=== PATIENT | female | born 1975 | race Caucasian/White ===

== ENCOUNTER → 2016-12-18 | Outpatient (CLI) | payer BC ==
[~2016-12-18] MED LIST: ALORA; EXCEDRIN TENSIO1 CAP; LEVOXYL0.025 MG; LOMOTIL 0.025 M1 TAB; LORTAB 5/500 501 TAB PO; MOTRIN 600600 MG/TAB PO; NO HOME MEDICATIONS; PERCOCET 325 MG1 TA2 PO; PREVACID 15MG15 M1 PO; PROTONIX 40MG T40 MG PO; PROTONIX20 MG; RANITIDINE150 MG PO; REGLAN 10MG10 MG/TAB PO; SANDOSTATIN LAR10 MG; SUTENT25 MG; ZANTAC 150MG T150 MG PO; ZOLOFT
== END ==
LOC: COL.VAS 07:52
DX: I26.99 Other pulmonary embolism without acute cor pulmonale (principal)

== ENCOUNTER → 2017-01-18 | Outpatient (CLI) | payer BC | LOC: MC.RAD 13:00 | DX: Z12.31 Encounter for screening mammogram for malignant neoplasm of breast (principal) ==

== ENCOUNTER 2017-06-14 02:25 | Emergency (ER) | payer BC ==
[~2017-06-14] VITALS: Ht 162.6 cm; Wt 120.5 kg
[~2017-06-14 02:25] MED LIST changes: -LEVOXYL0.025 MG; +LEVOXYL0.088 MG PO
[2017-06-14 02:32] VITALS: TEMP 98.4
[2017-06-14 03:18] LABS: BASO % 0.5 % (0.0-2.0); EOS % 0.3 % (0-4.0); GRAN # 4.8 (1.4-6.5); GRAN % 77.8 % (42.2-75.2); HEMATOCRIT 42.5 % (37.0-47.0); HEMOGLOBIN 13.9 g/dl (12.5-16.0); LYMPH # 1.1 (1.2-3.4); LYMPH % 17.5 % (20.0-51.0); MEAN CELL VOLUME 88 fl (80.0-100.0); MEAN CORPUSCULAR HEMOGLOBIN 29 pg (27.0-31.0); MEAN CORPUSCULAR HGB CONC 33 g/dl (33.0-37.0); MEAN PLATELET VOLUME 10.7 fl (7.4-10.4); MONO # 0.2 (0.1-0.6); MONO % 3.4 % (1.7-9.3); PLATELET COUNT 93 K/mm3 (130-400); RED BLOOD COUNT 4.85 M/mm3 (4.10-5.30); REDCELL DISTRIBUTION WIDTH-CV 14.6 % (11.5-14.5); WHITE BLOOD COUNT 6.2 K/mm3 (4.8-10.8)
[2017-06-14 03:23] LABS: INR 1.4 (0.8-3.0); PROTHROMBIN TIME 15.3 SECONDS (9.7-12.8)
[2017-06-14 03:30] LABS: ADJUSTED CALCIUM 8.9 mg/dL (8.4-10.2); ALANINE AMINOTRANSFERASE 29 U/L (9-52); ALBUMIN 4.2 gm/dL (3.5-5.0); ALKALINE PHOSPHATASE 82 U/L (50-136); ANION GAP 12 mmol/L (7-16); BILIRUBIN,TOTAL 0.7 mg/dL (0.0-1.0); BLOOD UREA NITROGEN 21 mg/dL (7-17); C-REACTIVE PROTEIN 1.3 mg/dL (0.0-0.9); CALCIUM 9.1 mg/dL (8.4-10.2); CARBON DIOXIDE 26 mmol/L (22-30); CHLORIDE 102 mmol/L (98-107); CREATININE, serum 0.85 mg/dL (0.52-1.25); GLUCOSE 112 mg/dL (74-106); POTASSIUM 3.6 mmol/L (3.4-5.0); SODIUM 140 mmol/L (137-145); TOTAL PROTEIN 6.8 gm/dL (6.4-8.2)
[2017-06-14 03:39] LABS: B-TYPE NATRIURETIC PEPTIDE 102 pg/mL (0-125)
[2017-06-14 03:40] LABS: TROPONIN-I < 0.012 ng/mL (0.000-0.034)
[2017-06-14] MEDS ORDERED: MORPHINE 1515 MG/TAB PO (05:52)
[2017-06-14] MEDS ORDERED: CELEXA 20MG20 MG/TAB PO (05:54)
[2017-06-14] MEDS ORDERED: ZOFRAN ODT8 MG PO (05:55)
[2017-06-14] MEDS ORDERED: NEURONTIN300 MG/CAP PO (05:55)
[2017-06-14] MEDS ORDERED: ELIQUIS 5MG PO (05:56)
[2017-06-14] MEDS ORDERED: FLOMAX 0.40.4 MG/CAP PO (05:56)
[2017-06-14] MEDS ORDERED: CARAFATE 1GM1 G PO (05:57)
[2017-06-14] MEDS ORDERED: COMPAZINE 110 MG/TAB PO (05:57)
[2017-06-14 06:14] LABS: LIPASE 31 U/L (23-300)
[2017-06-14 07:13] VITALS: BP 137/72; PULSE 90
== END 2017-06-14 07:15 | disposition home or self-care (01) ==
LOC: COL.ER 02:25 → CANBEDREQ 03:35 → COL.ER 07:15
PROVIDERS: Emergency Medicine
DX: G89.3 Neoplasm related pain (acute) (chronic) (principal); R07.89 Other chest pain; C7A.8 Other malignant neuroendocrine tumors; Z86.711 Personal history of pulmonary embolism; Z79.01 Long term (current) use of anticoagulants; Z90.49 Acquired absence of other specified parts of digestive tract; Z98.890 Other specified postprocedural states
CPT/HCPCS: J1170; J2405; J3010; J7030; Q9967

== ENCOUNTER 2018-02-01 22:02 | Emergency (ER) | payer MEDICARE, BC ==
[~2018-02-01] VITALS: Ht 162.6 cm; Wt 129.5 kg
[~2018-02-01 22:02] MED LIST changes: +CARAFATE 1GM1 G PO; +CELEXA 20MG20 MG/TAB PO; +COMPAZINE 110 MG/TAB PO; +ELIQUIS 5MG PO; +FLOMAX 0.40.4 MG/CAP PO; +MORPHINE 1515 MG/TAB PO; +NEURONTIN300 MG/CAP PO; +ZOFRAN ODT8 MG PO
[2018-02-01 23:03] LABS: BASO % 0.5 % (0.0-2.0); EOS # 0.1 (0.0-0.7); EOS % 0.9 % (0-4.0); GRAN # 6.2 (1.4-6.5); GRAN % 82.7 % (42.2-75.2); HEMATOCRIT 37.5 % (37.0-47.0); HEMOGLOBIN 11.7 g/dl (12.5-16.0); LYMPH # 0.8 (1.2-3.4); LYMPH % 10.3 % (20.0-51.0); MEAN CELL VOLUME 85 fl (80.0-100.0); MEAN CORPUSCULAR HEMOGLOBIN 27 pg (27.0-31.0); MEAN CORPUSCULAR HGB CONC 31 g/dl (33.0-37.0); MEAN PLATELET VOLUME 10.7 fl (7.4-10.4); MONO # 0.4 (0.1-0.6); MONO % 5.2 % (1.7-9.3); PLATELET COUNT 126 K/mm3 (130-400); REDCELL DISTRIBUTION WIDTH-CV 16.8 % (11.5-14.5)
[2018-02-01 23:10] LABS: INR 1.1 (0.8-3.0); PROTHROMBIN TIME 12.2 SECONDS (9.7-12.8)
[2018-02-01 23:13] LABS: PARTIAL THROMBOPLASTIN TIME 38.2 SECONDS (26.0-37.0)
[2018-02-01 23:16] LABS: ALANINE AMINOTRANSFERASE 30 U/L (9-52); ALBUMIN 3.7 gm/dL (3.5-5.0); ALKALINE PHOSPHATASE 110 U/L (50-136); ANION GAP 12 mmol/L (7-16); AST,SGOT 35 U/L (15-37); BILIRUBIN,TOTAL 0.7 mg/dL (0.0-1.0); BLOOD UREA NITROGEN 9 mg/dL (7-17); C-REACTIVE PROTEIN 4.3 mg/dL (0.0-0.9); CALCIUM 9.2 mg/dL (8.4-10.2); CARBON DIOXIDE 29 mmol/L (22-30); CHLORIDE 99 mmol/L (98-107); GLUCOSE 150 mg/dL (74-106); LIPASE 20 U/L (23-300); POTASSIUM 3.8 mmol/L (3.4-5.0); SODIUM 140 mmol/L (137-145); TOTAL PROTEIN 6.8 gm/dL (6.4-8.2)
[2018-02-01 23:24] LABS: TROPONIN-I < 0.012 ng/mL (0.000-0.034)
[2018-02-02 00:23] LABS: COLLECTION METHOD CLEAN CATCH
[2018-02-02 00:30] LABS: PH 5 (5-8); SQUAMOUS EPITHELIAL 0-2 /hpf; URINE APPEARANCE Hazy; URINE BACTERIA Rare /hpf; URINE BILIRUBIN Negative (NEGATIVE); URINE BLOOD Negative (NEGATIVE); URINE COLOR Yellow; URINE GLUCOSE Negative (NEGATIVE); URINE KETONE Negative (NEGATIVE); URINE LEUKOCYTE ESTERASE Negative (NEGATIVE); URINE NITRATE Negative (NEGATIVE); URINE PROTEIN(semi-quant) Negative (NEGATIVE); URINE RBC 0-2 /hpf; URINE UROBILINOGEN Negative (NEGATIVE)
[2018-02-02] MEDS ORDERED: LIDODERM 5% PATC1 EA TP (00:53)
[2018-02-02 02:04] VITALS: BP 130/69; PULSE 118; TEMP 98.8
== END 2018-02-02 02:07 | disposition home or self-care (01) ==
LOC: COL.ER 22:02
PROVIDERS: Emergency Medicine
DX: C7A.8 Other malignant neuroendocrine tumors (principal); R07.89 Other chest pain; Z90.49 Acquired absence of other specified parts of digestive tract; Z79.01 Long term (current) use of anticoagulants
CPT/HCPCS: J1170; J1885; J2405; J7030; Q9967

== ENCOUNTER → 2018-02-19 | Outpatient (CLI) | payer MEDICARE, BC ==
[2018-02-19] VITALS (15 sets, daily range): BP systolic 119–170; BP diastolic 60–92; PULSE 90–108
[~2018-02-19] VITALS: Ht 162.6 cm; Wt 160.0 kg
[~2018-02-19] MED LIST changes: +ASPIRIN 81M81 MG/TA2 PO; +ATIVAN 1MG T1 MG/TAB PO; +LIDODERM 5% PATC1 EA TP
[2018-02-19 12:16] LABS: INR 1.1 (0.8-3.0)
[2018-02-19 12:35] LABS: PROTHROMBIN TIME 12.9 SECONDS (9.7-12.8)
== END ==
LOC: COL.RAD 11:37
PROVIDERS: Internal Medicine
DX: C7A.098 Malignant carcinoid tumors of other sites (principal); K76.89 Other specified diseases of liver; Z79.01 Long term (current) use of anticoagulants
CPT/HCPCS: J2250; J3010

== ENCOUNTER 2018-03-12 08:51 | Inpatient (IN) | payer MEDICARE, BC ==
[2018-03-12] VITALS (9 sets, daily range): BP systolic 130–144; BP diastolic 45–89; PULSE 96–123; TEMP 97.7–99.2
[~2018-03-12] VITALS: Ht 162.6 cm; Wt 152.3 kg
[2018-03-12 09:36] LABS: BASO # 0.1 (0.0-0.2); BASO % 0.8 % (0.0-2.0); EOS # 0.5 (0.0-0.7); EOS % 5.7 % (0-4.0); GRAN # 6.5 (1.4-6.5); GRAN % 74.2 % (42.2-75.2); HEMOGLOBIN 12.3 g/dl (12.5-16.0); LYMPH # 1.1 (1.2-3.4); LYMPH % 12.3 % (20.0-51.0); MEAN CELL VOLUME 80 fl (80.0-100.0); MEAN CORPUSCULAR HEMOGLOBIN 25 pg (27.0-31.0); MEAN CORPUSCULAR HGB CONC 31 g/dl (33.0-37.0); MEAN PLATELET VOLUME 9.9 fl (7.4-10.4); MONO # 0.5 (0.1-0.6); MONO % 6.1 % (1.7-9.3); PLATELET COUNT 190 K/mm3 (130-400); RED BLOOD COUNT 5.02 M/mm3 (4.10-5.30); REDCELL DISTRIBUTION WIDTH-CV 16.4 % (11.5-14.5)
[2018-03-12 09:46] LABS: ALANINE AMINOTRANSFERASE 28 U/L (9-52); ALBUMIN 3.9 gm/dL (3.5-5.0); ALKALINE PHOSPHATASE 169 U/L (50-136); ANION GAP 12 mmol/L (7-16); AST,SGOT 38 U/L (15-37); BILIRUBIN,TOTAL 1.5 mg/dL (0.0-1.0); BLOOD UREA NITROGEN 7 mg/dL (7-17); CALCIUM 9.4 mg/dL (8.4-10.2); CARBON DIOXIDE 28 mmol/L (22-30); CHLORIDE 98 mmol/L (98-107); CREATININE, serum 0.79 mg/dL (0.52-1.25); GLUCOSE 145 mg/dL (74-106); LIPASE 22 U/L (23-300); POTASSIUM 3.6 mmol/L (3.4-5.0); SODIUM 138 mmol/L (137-145); TOTAL PROTEIN 7.6 gm/dL (6.4-8.2)
[2018-03-12 09:58] LABS: TROPONIN-I < 0.012 ng/mL (0.000-0.034)
[2018-03-12] MEDS ORDERED: XANAX 1MG1 MG PO (09:58)
[2018-03-12] MEDS ORDERED: LOMOTIL 0.025 M1 TAB PO (09:59)
[2018-03-12] MEDS ORDERED: FLEXERIL5 MG PO (10:00)
[2018-03-12] MEDS ORDERED: FLEXERIL 1010 MG/TAB PO (10:00)
[2018-03-12 13:09] LABS: COLLECTION METHOD CLEAN CATCH
[2018-03-12 13:15] LABS: PH 5 (5-8); SQUAMOUS EPITHELIAL 0-2 /hpf; URINE APPEARANCE Clear; URINE BACTERIA Rare /hpf; URINE BILIRUBIN Negative (NEGATIVE); URINE BLOOD Negative (NEGATIVE); URINE COLOR Yellow; URINE GLUCOSE Negative (NEGATIVE); URINE KETONE Negative (NEGATIVE); URINE LEUKOCYTE ESTERASE Negative (NEGATIVE); URINE NITRATE Negative (NEGATIVE); URINE PROTEIN(semi-quant) Negative (NEGATIVE); URINE RBC 0-2 /hpf; URINE UROBILINOGEN >=4.0 mg/dL (NEGATIVE)
[2018-03-13 03:15] VITALS: BP 135/72; PULSE 89; TEMP 98.6
[2018-03-13 06:54] LABS: CALCIUM 8.7 mg/dL (8.4-10.2); CREATININE, serum 0.74 mg/dL (0.52-1.25); POTASSIUM 3.4 mmol/L (3.4-5.0)
[2018-03-13 07:00] LABS: INR 2.3 (0.8-3.0); PROTHROMBIN TIME 25.8 SECONDS (9.7-12.8)
[2018-03-13 07:30] VITALS: BP 107/50; PULSE 85; TEMP 97.9
[2018-03-13 08:18] LABS: BASO % 0.7 % (0.0-2.0); EOS # 0.3 (0.0-0.7); EOS % 5.7 % (0-4.0); GRAN # 3.1 (1.4-6.5); GRAN % 71.3 % (42.2-75.2); LYMPH # 0.7 (1.2-3.4); LYMPH % 14.9 % (20.0-51.0); MEAN CELL VOLUME 81 fl (80.0-100.0); MEAN CORPUSCULAR HGB CONC 30 g/dl (33.0-37.0); MEAN PLATELET VOLUME 10.2 fl (7.4-10.4); MONO # 0.3 (0.1-0.6); MONO % 6.9 % (1.7-9.3); PLATELET COUNT 116 K/mm3 (130-400); RED BLOOD COUNT 3.96 M/mm3 (4.10-5.30); REDCELL DISTRIBUTION WIDTH-CV 16.4 % (11.5-14.5)
[2018-03-13 08:27] LABS: HEMOGLOBIN 9.6 g/dl (12.5-16.0); MEAN CORPUSCULAR HEMOGLOBIN 24 pg (27.0-31.0)
[2018-03-13 11:32] VITALS: BP 127/59; PULSE 102; TEMP 97.9
[2018-03-13 16:56] VITALS: BP 129/49; PULSE 91; TEMP 98.5
[2018-03-13 19:07] VITALS: BP 132/49; PULSE 94; TEMP 98.5
[2018-03-14] VITALS (7 sets, daily range): BP systolic 103–122; BP diastolic 37–57; PULSE 84–97; TEMP 97.9–99.1
[2018-03-14 06:46] LABS: BASO % 0.7 % (0.0-2.0); EOS # 0.2 (0.0-0.7); EOS % 4.9 % (0-4.0); GRAN # 3.1 (1.4-6.5); GRAN % 71.9 % (42.2-75.2); LYMPH # 0.7 (1.2-3.4); LYMPH % 15.9 % (20.0-51.0); MEAN CELL VOLUME 81 fl (80.0-100.0); MEAN CORPUSCULAR HGB CONC 30 g/dl (33.0-37.0); MONO # 0.3 (0.1-0.6); MONO % 6.1 % (1.7-9.3); PLATELET COUNT 123 K/mm3 (130-400); RED BLOOD COUNT 3.96 M/mm3 (4.10-5.30); REDCELL DISTRIBUTION WIDTH-CV 16.2 % (11.5-14.5)
[2018-03-14 06:50] LABS: CALCIUM 8.6 mg/dL (8.4-10.2); CREATININE, serum 0.72 mg/dL (0.52-1.25); HEMATOCRIT 31.9 % (37.0-47.0); HEMOGLOBIN 9.6 g/dl (12.5-16.0); MEAN CORPUSCULAR HEMOGLOBIN 24 pg (27.0-31.0); POTASSIUM 3.5 mmol/L (3.4-5.0)
[2018-03-14 06:56] LABS: INR 1.2 (0.8-3.0); PROTHROMBIN TIME 13.1 SECONDS (9.7-12.8)
[2018-03-15 03:08] VITALS: BP 98/45; PULSE 74; TEMP 98.6
[2018-03-15 06:39] LABS: BASO % 0.8 % (0.0-2.0); EOS # 0.2 (0.0-0.7); EOS % 4.2 % (0-4.0); GRAN # 2.6 (1.4-6.5); GRAN % 72.4 % (42.2-75.2); LYMPH # 0.6 (1.2-3.4); LYMPH % 15.6 % (20.0-51.0); MEAN CELL VOLUME 79 fl (80.0-100.0); MEAN CORPUSCULAR HGB CONC 30 g/dl (33.0-37.0); MEAN PLATELET VOLUME 10.2 fl (7.4-10.4); MONO # 0.2 (0.1-0.6); MONO % 6.4 % (1.7-9.3); PLATELET COUNT 107 K/mm3 (130-400); RED BLOOD COUNT 3.89 M/mm3 (4.10-5.30); REDCELL DISTRIBUTION WIDTH-CV 16.2 % (11.5-14.5)
[2018-03-15 06:42] LABS: HEMATOCRIT 30.9 % (37.0-47.0); HEMOGLOBIN 9.3 g/dl (12.5-16.0); MEAN CORPUSCULAR HEMOGLOBIN 24 pg (27.0-31.0)
[2018-03-15 06:52] LABS: INR 1.1 (0.8-3.0); PROTHROMBIN TIME 12.7 SECONDS (9.7-12.8)
[2018-03-15 06:57] LABS: CALCIUM 8.5 mg/dL (8.4-10.2); CREATININE, serum 0.69 mg/dL (0.52-1.25); POTASSIUM 3.4 mmol/L (3.4-5.0)
[2018-03-15 07:19] VITALS: BP 98/51; PULSE 92; TEMP 99.3
[2018-03-15 11:20] LABS: GLUCOSE,PLEURAL FLUID 111 mg/dL; TOTAL PROTEIN,PLEURAL FLUID 3.4 gm/dL
[2018-03-15 11:22] LABS: PLEURAL FLUID RBC 24000 /mm3 (0-0); PLEURAL FLUID WBC 2045 /mm3
[2018-03-15 11:24] LABS: PLEURAL FLUID APPEARANCE CLOUDY; PLEURAL FLUID COLOR AMBER
[2018-03-15 11:33] VITALS: BP 98/43; PULSE 88; TEMP 98.4
== END 2018-03-15 16:25 | disposition home or self-care (01) | DRG 187 ==
LOC: EUO 08:51 → MEDICAL 17:30
PROVIDERS: Hospitalist; Internal Medicine; Nurse Practitioner; Physician Assistant
PROC: 0W9B3ZX Drainage of Left Pleural Cavity, Percutaneous Approach, Diagnostic (ICD-10-PCS; principal; 2018-03-15)
DX: J90 Pleural effusion, not elsewhere classified (principal); C25.4 Malignant neoplasm of endocrine pancreas; C78.01 Secondary malignant neoplasm of right lung; C78.6 Secondary malignant neoplasm of retroperitoneum and peritoneum; Z68.43 Body mass index [BMI] 50.0-59.9, adult; C79.61 Secondary malignant neoplasm of right ovary; C79.62 Secondary malignant neoplasm of left ovary; C78.7 Secondary malignant neoplasm of liver and intrahepatic bile duct; E66.01 Morbid (severe) obesity due to excess calories; Z86.718 Personal history of other venous thrombosis and embolism; Z79.01 Long term (current) use of anticoagulants
CPT/HCPCS: 99223-AI; 99232-AI; 99233-AI; 99239; J1644; J2060; J2405; J2550; J7030; Q9967

== ENCOUNTER 2018-04-01 13:31 | Inpatient (IN) | payer MEDICARE, BC ==
[~2018-04-01] VITALS: Ht 152.4 cm; Wt 145.5 kg
[~2018-04-01 13:31] MED LIST changes: +FLEXERIL 1010 MG/TAB PO; +FLEXERIL5 MG PO; +LOMOTIL 0.025 M1 TAB PO; +XANAX 1MG1 MG PO
[2018-04-01 14:23] LABS: HEMATOCRIT 41.4 % (37.0-47.0); HEMOGLOBIN 12.6 g/dl (12.5-16.0); MEAN CELL VOLUME 77 fl (80.0-100.0); MEAN CORPUSCULAR HEMOGLOBIN 24 pg (27.0-31.0); MEAN CORPUSCULAR HGB CONC 30 g/dl (33.0-37.0); MEAN PLATELET VOLUME 10.2 fl (7.4-10.4); PLATELET COUNT 155 K/mm3 (130-400); RED BLOOD COUNT 5.36 M/mm3 (4.10-5.30); REDCELL DISTRIBUTION WIDTH-CV 16.7 % (11.5-14.5)
[2018-04-01 14:46] LABS: ALBUMIN 4.1 gm/dL (3.5-5.0); BILIRUBIN,TOTAL 2.4 mg/dL (0.0-1.0); CALCIUM 9.4 mg/dL (8.4-10.2); CREATININE, serum 0.77 mg/dL (0.52-1.25); POTASSIUM 3.7 mmol/L (3.4-5.0); TOTAL PROTEIN 7.5 gm/dL (6.4-8.2)
[2018-04-01 14:53] VITALS: BP 143/85; PULSE 100; TEMP 98.4
[2018-04-01 19:32] VITALS: BP 135/79; PULSE 93; TEMP 98.3
[2018-04-01 23:22] VITALS: BP 99/78; PULSE 93; TEMP 98
[2018-04-02 03:12] VITALS: BP 142/75; PULSE 92; TEMP 98.1
[2018-04-02 06:55] LABS: BASO # 0.1 (0.0-0.2); BASO % 0.9 % (0.0-2.0); EOS # 0.2 (0.0-0.7); EOS % 3.8 % (0-4.0); HEMOGLOBIN 10.8 g/dl (12.5-16.0); LYMPH # 0.8 (1.2-3.4); LYMPH % 14.9 % (20.0-51.0); MEAN CELL VOLUME 78 fl (80.0-100.0); MEAN CORPUSCULAR HEMOGLOBIN 23 pg (27.0-31.0); MEAN CORPUSCULAR HGB CONC 30 g/dl (33.0-37.0); MEAN PLATELET VOLUME 10.7 fl (7.4-10.4); MONO # 0.4 (0.1-0.6); MONO % 6.7 % (1.7-9.3); PLATELET COUNT 134 K/mm3 (130-400); RED BLOOD COUNT 4.65 M/mm3 (4.10-5.30); REDCELL DISTRIBUTION WIDTH-CV 16.8 % (11.5-14.5)
[2018-04-02 07:03] LABS: HEMATOCRIT 36.4 % (37.0-47.0)
[2018-04-02 07:13] LABS: ALBUMIN 3.6 gm/dL (3.5-5.0); BILIRUBIN,TOTAL 1.6 mg/dL (0.0-1.0); CREATININE, serum 0.74 mg/dL (0.52-1.25); POTASSIUM 3.6 mmol/L (3.4-5.0); TOTAL PROTEIN 6.5 gm/dL (6.4-8.2)
[2018-04-02 08:21] VITALS: BP 127/72; PULSE 88; TEMP 97.5
[2018-04-02 11:46] VITALS: BP 135/75; PULSE 88; TEMP 98.1
[2018-04-02 15:39] VITALS: BP 134/71; PULSE 95; TEMP 98.3
[2018-04-02 19:33] VITALS: BP 138/77; PULSE 91; TEMP 98.3
[2018-04-02 23:59] VITALS: BP 131/55; PULSE 93; TEMP 100
[2018-04-03 03:18] VITALS: BP 145/74; PULSE 56; TEMP 99
[2018-04-03 07:18] VITALS: BP 142/59; PULSE 100; TEMP 98.5
[2018-04-03] MEDS ORDERED: PHENERGAN 25 TA25 MG PO (09:14)
[2018-04-03] MEDS ORDERED: ELIQUIS 5MG PO (09:15)
[2018-04-03] MEDS ORDERED: ZOFRAN 4MG T4 MG/TAB PO (09:19)
== END 2018-04-03 11:30 | disposition home or self-care (01) | DRG 641 ==
LOC: MEDICAL 13:31
PROVIDERS: Family Medicine
DX: E86.0 Dehydration (principal); C78.01 Secondary malignant neoplasm of right lung; C78.02 Secondary malignant neoplasm of left lung; C25.8 Malignant neoplasm of overlapping sites of pancreas; C78.7 Secondary malignant neoplasm of liver and intrahepatic bile duct; C78.6 Secondary malignant neoplasm of retroperitoneum and peritoneum; C78.2 Secondary malignant neoplasm of pleura; E44.0 Moderate protein-calorie malnutrition; Z86.711 Personal history of pulmonary embolism; Z79.01 Long term (current) use of anticoagulants
CPT/HCPCS: C9113; J1644; J2270; J2405; J2550; J3480; J7030

== ENCOUNTER → 2018-04-29 | Outpatient (CLI) | payer MEDICARE, BC ==
[~2018-04-29] MED LIST changes: +PHENERGAN 25 TA25 MG PO; +ZOFRAN 4MG T4 MG/TAB PO
== END ==
LOC: COL.PUL 10:11
DX: R09.02 Hypoxemia (principal)

== ENCOUNTER → 2018-06-06 | Outpatient (CLI) | payer MEDICARE, BC | LOC: MC.RAD 12:57 | DX: C7B.8 Other secondary neuroendocrine tumors (principal); N64.89 Other specified disorders of breast | CPT/HCPCS: G0279 ==

== ENCOUNTER → 2018-06-07 | Outpatient (CLI) | payer MEDICARE, BC ==
[~2018-06-07] VITALS: Ht 165.1 cm; Wt 154.5 kg
[2018-06-07 08:45] VITALS: BP 155/95; PULSE 104
== END ==
LOC: COL.RAD 08:13
DX: J90 Pleural effusion, not elsewhere classified (principal); R18.8 Other ascites; Z85.89 Personal history of malignant neoplasm of other organs and systems

== ENCOUNTER 2018-06-13 17:15 | Inpatient (IN) | payer MEDICARE, BC ==
[~2018-06-13] VITALS: Ht 162.6 cm; Wt 173.1 kg
[2018-06-13] MEDS ORDERED: LASIX 20MG TABL20 MG PO (17:41)
[2018-06-13] MEDS ORDERED: K-TAB10 PO (17:41)
[2018-06-13] MEDS ORDERED: DICLOXACILLIN500 MG PO (17:42)
[2018-06-13] MEDS ORDERED: ADRUCIL50 MG/ML IV (17:44)
[2018-06-13] MEDS ORDERED: [UNRECOGNIZED DRUG - OTHER] IV (17:45)
[2018-06-13 17:51] VITALS: BP 138/75; PULSE 111; TEMP 98.5
[2018-06-13 19:30] LABS: BASO % 0.3 % (0.0-2.0); EOS # 0.1 (0.0-0.7); EOS % 0.8 % (0-4.0); GRAN # 5.4 (1.4-6.5); GRAN % 89.1 % (42.2-75.2); HEMATOCRIT 32.5 % (37.0-47.0); LYMPH # 0.3 (1.2-3.4); LYMPH % 4.4 % (20.0-51.0); MEAN CELL VOLUME 83 fl (80.0-100.0); MEAN CORPUSCULAR HEMOGLOBIN 25 pg (27.0-31.0); MEAN CORPUSCULAR HGB CONC 31 g/dl (33.0-37.0); MEAN PLATELET VOLUME 9.6 fl (7.4-10.4); MONO # 0.3 (0.1-0.6); MONO % 4.9 % (1.7-9.3); PLATELET COUNT 146 K/mm3 (130-400); RED BLOOD COUNT 3.94 M/mm3 (4.10-5.30); REDCELL DISTRIBUTION WIDTH-CV 23.7 % (11.5-14.5)
[2018-06-13 19:44] LABS: ALBUMIN 2.6 gm/dL (3.5-5.0); BILIRUBIN,TOTAL 2.4 mg/dL (0.0-1.0); CALCIUM 8.1 mg/dL (8.4-10.2); CREATININE, serum 0.66 mg/dL (0.52-1.25); POTASSIUM 3.9 mmol/L (3.4-5.0); TOTAL PROTEIN 5.6 gm/dL (6.4-8.2)
[2018-06-13 20:49] VITALS: BP 130/56; PULSE 110; TEMP 98
[2018-06-14 01:24] VITALS: BP 103/67; PULSE 100; TEMP 98.6
[2018-06-14 03:43] VITALS: BP 106/64; PULSE 105; TEMP 98.6
[2018-06-14 08:54] VITALS: BP 131/62; PULSE 107; TEMP 98.4
[2018-06-14] MEDS ORDERED: ATIVAN 1MG T1 MG/TAB PO (09:56)
[2018-06-14] MEDS ORDERED: XANAX 1MG1 MG PO (09:56)
[2018-06-14] MEDS ORDERED: ROXANOL 20MG20 MG/ML PO (09:56)
== END 2018-06-14 18:05 | disposition hospice, inpatient (51) | DRG 844 ==
LOC: MEDICAL 17:15
PROVIDERS: Hospitalist
DX: C7A.8 Other malignant neuroendocrine tumors (principal); J90 Pleural effusion, not elsewhere classified; C7B.8 Other secondary neuroendocrine tumors; F32.9 Major depressive disorder, single episode, unspecified; F41.9 Anxiety disorder, unspecified; K21.9 Gastro-esophageal reflux disease without esophagitis; E03.9 Hypothyroidism, unspecified; Z66 Do not resuscitate; Z51.5 Encounter for palliative care; I65.22 Occlusion and stenosis of left carotid artery; G89.3 Neoplasm related pain (acute) (chronic); D63.0 Anemia in neoplastic disease; R53.81 Other malaise; R60.1 Generalized edema
CPT/HCPCS: 99222-AI; 99239; J1940